=== PATIENT | female | born 1965 | race Caucasian/White ===

== ENCOUNTER 2022-12-11 15:28 | Outpatient (CLI) | payer OTHER | END 2022-12-11 15:29 | disposition home or self-care (01) | LOC: CSHCT 15:28 | PROVIDERS: ATTEND Internal Medicine Cardiovascular Disease | DX: I70.0 Atherosclerosis of aorta (principal); I77.810 Thoracic aortic ectasia | CPT/HCPCS: 71275 ==

== ENCOUNTER 2023-02-24 10:04 | Outpatient (CLI) | payer OTHER | END 2023-02-24 10:05 | disposition home or self-care (01) | LOC: CSHMAMMO 10:04 | PROVIDERS: ATTEND Family Medicine Sports Medicine | DX: Z12.31 Encounter for screening mammogram for malignant neoplasm of breast (principal); Z98.890 Other specified postprocedural states | CPT/HCPCS: 77063; 77067 ==